=== PATIENT | female | born 1960 | race African-American/Black ===

== ENCOUNTER 2016-06-30 08:21 | Emergency (ER) | payer MEDICARE, OTHER ==
--- NOTE | ~2016-06-30 | CT23 ---
[facility] A Service of [facility] & [facility] RADIOLOGY TEXT RESULTS PATIENT: FLEX CERRATO LOCATION: [facility] : 64 UNIT #: [id number] AGE: [address]: Joel Yeboah MD SEX: F ORDER DR: [id number] [facility]. [place], [place] [address] [id number] E MR#: [id number] Acc #: [id number] NAME: FLEX CERRATO : 1960 SEX: F STUDY DATE/TIME: 06/30/2016 9:54 UNIT: [facility] ROOM: STUDY DESCRIPTION: CT Angio Neck Attending Physician: Joel Yeboah M.D. Ordering Physician: Joel Yeboah M.D. MEDICAL IMAGING REPORT This report is preliminary unless electronic signature is present EXAM CTA neck HISTORY Refer below. FINDINGS Please refer to the CTA head report on the same date for complete details. Dictated by... Jon Smith M.D. THIS IS AN ELECTRONICALLY VERIFIED REPORT Jon Smith M.D. at 07/04/2016 7:06 PM TEV/pcl TD: 06/30/2016 16:58 JOB #: [id number] MEDICAL IMAGING REPORT COPY
--- NOTE | ~2016-06-30 | CT17 ---
[facility] A Service of [facility] RADIOLOGY TEXT RESULTS PATIENT: FLEX CERRATO LOCATION: [facility] : 64 UNIT #: [id number] AGE: [address]: Joel Yeboah MD SEX: F ORDER DR: [id number] [facility] [address] [place], [place] [address] [id number] E MR#: [id number] Acc #: [id number] NAME: FLEX CERRATO : 1960 SEX: F STUDY DATE/TIME: 06/30/2016 9:54 UNIT: [facility] ROOM: STUDY DESCRIPTION: CT Angio Head Attending Physician: Joel Yeboah M.D. Ordering Physician: Joel Yeboah M.D. MEDICAL IMAGING REPORT This report is preliminary unless electronic signature is present EXAM CTA head and neck, 06/30/2016 HISTORY Right arm and hand numbness this morning. Previous aneurysm coiling. COMPARISON STUDIES Head CT, same date. TECHNIQUE Axial contrast enhanced head and neck CT angiogram with 3-D reformats. This CT exam was performed with one or more of the following radiation dose reduction techniques: automatic exposure control, adjustment of mA and/or kV according to patient size, and iterative reconstruction. FINDINGS There is a normal arch branching pattern without proximal great vessel stenosis. Both vertebral arteries, common and internal and external carotid arteries are widely patent. There is no identifiable plaque at either carotid bifurcation and no stenosis by NASCET or other criteria. Both vertebral arteries contribute to the basilar artery. There has been previous aneurysm clipping in the region of the left posterior communicator and coiling in the region of the right posterior communicator. There is left frontal opercular encephalomalacia but there is no compelling evidence of any region or zone of hypoperfusion and there is no mass or abnormal enhancement and the dural venous sinuses appear normal. The cervical soft tissues are unremarkable. The lung apices are unremarkable. There are some dental caries in the few remaining teeth. Intracranially, there is grossly symmetric vascularity, and no convincing evidence of any aneurysm or flow limiting stenosis. [facility] A Service of [facility] RADIOLOGY TEXT RESULTS PATIENT: FLEX CERRATO LOCATION: [facility] : 64 UNIT #: [id number] AGE: [address]: Joel Yeboah MD SEX: F ORDER DR: DEANNE Previous aneurysm coiling and clipping without compelling CT angiographic evidence of recurrent aneurysm. No evidence of new aneurysm and no evidence of intracranial branch vessel occlusion or flow limiting stenosis, mass or abnormal enhancement. There is some left frontal opercular encephalomalacia but no acute intracranial abnormality is seen. Dictated by... Jon Smith M.D. THIS IS AN ELECTRONICALLY VERIFIED REPORT Jon Smith M.D. at 07/04/2016 7:06 PM TEV/pcl TD: 06/30/2016 16:48 JOB #: [id number] MEDICAL IMAGING REPORT COPY
--- NOTE | ~2016-06-30 | EKG ---
PATIENT: FLEX CERRATO UNIT #: [id number] Ventricular Rate: 51 BPM Atrial Rate: 51 BPM P-R Interval: 160 ms QRS Duration: 88 ms Q-T Interval: 430 ms QTC Calculation(Bezet): 396 ms P [place]: 34 degrees Calculated R [place]: 30 degrees Calculated T [place]: 22 degrees Diagnosis Line: Sinus bradycardia Diagnosis Line: Otherwise normal ECG Diagnosis Line: No previous ECGs available Diagnosis Line: Confirmed by WILDER VELASQUEZ MD ([id number]) on 07/01/2016 Diagnosis Line: 7:00:58 AM INTERPRETING MD: EVA WILLIAM
--- NOTE | ~2016-06-30 | CT71 ---
[facility] A Service of [facility] RADIOLOGY TEXT RESULTS PATIENT: FLEX CERRATO LOCATION: [facility] : 64 UNIT #: [id number] AGE: [address]: Joel Yeboah MD SEX: F ORDER DR: [id number] [facility]. [place], [place] [address] [id number] E MR#: [id number] Acc #: [id number] NAME: FLEX CERRATO : 1960 SEX: F STUDY DATE/TIME: 06/30/2016 9:51 UNIT: [facility] ROOM: STUDY DESCRIPTION: CT Head Wo Contrast Attending Physician: oJel Yeboah M.D. Ordering Physician: Joel Yeboah M.D. MEDICAL IMAGING REPORT This report is preliminary unless electronic signature is present EXAM CT head, noncontrast, 06/30/2016. HISTORY 55-year-old female in the ED complaining of new onset right upper extremity numbness and weakness beginning this morning. She has a history of prior surgery for intracranial aneurysm. TECHNIQUE CT examination of the head was performed without IV contrast. This CT exam was performed with one or more of the following radiation dose reduction techniques: automatic exposure control, adjustment of mA and/or kV according to patient size, and iterative reconstruction. COMPARISON No comparison studies have been performed here. FINDINGS No acute intracranial abnormalities identified, and there is no evidence of acute intracranial hemorrhage. Postoperative changes of previous left frontotemporal craniotomy for left ICA aneurysm clip surgery. There is also embolic coil material on the contralateral right side of the sella. 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 No evidence of intracranial hemorrhage, mass, mass effect, cerebral edema or hydrocephalus. IMPRESSION [facility] A Service of [facility] RADIOLOGY TEXT RESULTS PATIENT: FLEX CERRATO LOCATION: [facility] : 64 UNIT #: [id number] AGE: [address]: Joel Yeboah MD SEX: F ORDER DR: 1. No acute intracranial abnormality. 2. Previous aneurysm procedures, including left frontotemporal craniotomy and right ICA aneurysm coil procedure. 3. 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 4. No evidence of intracranial hemorrhage. Dictated by... Mc Nguyen M.D. THIS IS AN ELECTRONICALLY VERIFIED REPORT Mc Nguyen M.D. at 07/01/2016 8:39 AM FRANK/edy TD: 06/30/2016 16:39 JOB #: [id number] MEDICAL IMAGING REPORT COPY
[2016-06-30 08:36] LABS: BASOPHIL% 0.3 % (0-2.5); EOSINOPHIL# 0.3 X10e3 (0-0.7); HEMATOCRIT 42.6 % (35.0-45.0); LYMPHOCYTE# 2.6 X10e3 (1.0-3.5); MEAN CELL VOLUME 88.4 FL (83-96); MEAN CORPUSCULAR HEMOGLOBIN 29.1 PG (28-34); MEAN CORPUSCULAR HGB CONC 32.9 g/dL (30-36); MEAN PLATELET VOLUME 9.9 FL (6.5-11.5); MONOCYTE# 0.6 X10e3 (0-1.0); MONOCYTE% 7.7 % (3.0-12.0); NEUTROPHIL# 4.7 X10e3 (1.5-7.1); PLATELET COUNT 158 X10e3 (140-420); RED BLOOD COUNT 4.82 X10e (3.90-5.30); RED CELL DISTRIBUTION WIDTH 14.5 % (11.0-15.5); WHITE BLOOD COUNT 8.3 X10e3 (4.0-10.5)
[2016-06-30 08:37] LABS: DIFF IND NO
[2016-06-30 08:38] LABS: POC - CKMB 1.7 ng/mL (0.0-7.9); POC - TROPONIN <0.05 ng/mL (<=0.05)
[2016-06-30 08:46] LABS: PARTIAL THROMBOPLASTIN TIME 27.7 SECONDS (23.5-31.3)
[2016-06-30 09:03] LABS: ALBUMIN SERUM 3.4 g/dL (3.5-5.0); ALKALINE PHOSPHATASE 63 U/L (32-92); ALT (SGPT) 15 U/L (10-40); AST (SGOT) 15 U/L (10-42); BILIRUBIN, DIRECT 0.1 mg/dL (0.0-0.2); BILIRUBIN,INDIRECT 0.1 mg/dL (0.0-0.9); BILIRUBIN,TOTAL 0.2 mg/dL (0.2-2.0); BLOOD UREA NITROGEN 13 mg/dL (9-23); BUN/CREATININE RATIO 16.25; CALCIUM SERUM 8.8 mg/dL (8.4-10.2); CARBON DIOXIDE 27 mmol/L (22-31); CHLORIDE 105 mmol/L (100-111); CREATININE SERUM 0.8 mg/dL (0.6-1.4); GLOM FILT RATE Estimated ABOVE60 mL/min (>60); GLUCOSE FASTING 106 mg/dL (70-110); POTASSIUM 4.1 mmol/L (3.5-5.1); PROTEIN TOTAL SERUM 7.1 g/dL (6.0-8.3); SODIUM 141 mmol/L (135-145)
== END 2016-06-30 11:19 | disposition home or self-care (01) ==
LOC: CED 08:21
PROVIDERS: Emergency Medicine
DX: R20.9 Unspecified disturbances of skin sensation (principal); I10 Essential (primary) hypertension; I63.9 Cerebral infarction, unspecified; F17.210 Nicotine dependence, cigarettes, uncomplicated
CPT/HCPCS: 36415; 70450; 70496; 70498; 80048; 80076; 82553; 82947; 84484; 85025; 85610; 85730; 93005; 99284; Q9967

== ENCOUNTER 2016-08-10 11:34 | Emergency (ER) | payer MEDICARE, OTHER | END 2016-08-10 11:41 | disposition home or self-care (01) | LOC: CED 11:34 | DX: B00.1 Herpesviral vesicular dermatitis (principal); I10 Essential (primary) hypertension; F17.200 Nicotine dependence, unspecified, uncomplicated; Z98.890 Other specified postprocedural states | CPT/HCPCS: 99282 ==